=== PATIENT | female | born 1965 | race Caucasian/White ===

== ENCOUNTER 2017-01-17 05:32 | Emergency (ER) | payer OTHER ==
[~2017-01-17 05:32] MED LIST: ANTIVERT PO; MEDROL PO; PHENERGAN PO
== END 2017-01-17 06:27 | disposition home or self-care (01) ==
LOC: CED 05:32
DX: L03.115 Cellulitis of right lower limb (principal); Z79.899 Other long term (current) drug therapy
CPT/HCPCS: 99283